=== PATIENT | male | born 1975 | race Two or more races ===

== ENCOUNTER 2016-11-17 23:39 | Emergency (ER) | payer MEDICAID ==
--- NOTE | 2016-11-17 23:43 | EDPHY ---
H & P HPI/ROS: HPI CHIEF COMPLAINT: Alcohol intoxication, possible seizure from [facility] HISTORY OF PRESENT ILLNESS: This patient is a 41-year-old male, drinks alcohol , tells me has a seizure disorder and he takes Ativan. He states he drinks alcohol daily. He is at the [facility] this evening. Where he states that he felt a seizure was going to come on. 911 was called he was transferred to the emergency room. There is no postictal state. There is no generalized tonic- clonic activity. Upon arrival to the emergency room the patient is intoxicated with alcohol. Smells of alcohol. Past Medical History: Daily alcohol use, seizures Past Surgical History: No recent surgical history Social History: Daily alcohol use Family History: Noncontributory ROS REVIEW OF SYSTEMS: A comprehensive 10 point review of systems is otherwise negative aside from elements mentioned in the history of present illness. Exam Constitutional Intoxicated, triage nursing summary reviewed, vital signs reviewed, Sleepy, smells of alcohol Eyes normal conjunctivae and sclera, horizontal beating nystagmus consistent acute alcohol intoxication, otherwise pupils equal and react to light HENT normal inspection, atraumatic, moist mucus membranes, no epistaxis, neck supple/ no meningismus, no raccoon eyes. Respiratory clear to auscultation bilaterally, normal breath sounds, no respiratory distress, no wheezing. Cardiovascular rate normal, regular rhythm, no murmur, no edema, distal pulses normal. Gastrointestinal soft, non-tender, no rebound, no guarding, normal bowel sounds, no distension, no pulsatile mass. Genitourinary no CVA tenderness. Musculoskeletal no midline vertebral tenderness, full range of motion, no calf swelling, no tenderness of extremities, no meningismus, good pulses, neurovascularly intact. Skin pink, warm, & dry, no rash, skin atraumatic. Neurologic sleepy, intoxicated with alcohol,, alert and oriented x 3, AAOx3, moves all 4 extremities equally, motor intact, sensory intact, CN II-XII intact , , normal vision, normal speech. Psychiatric normal mood/affect. Heme/Lymph/Immune no lymphadenopathy. Differential Diagnosis: Includes but is not limited to in a particular order acute alcohol intoxication, alcohol abuse, dehydration, electrolyte abnormality , nausea vomiting from acute alcohol intoxication [id number]: Patient has been sleeping here resting comfortably in no acute distress. No seizure activity. Patient like to go back to the [facility]. This will be appropriately set up. He ambulated well throughout the emergency room clinically sober. No acute distress. Source: Patient, EMS - Personal History Tetanus Vaccine Date: 2009 - Medical/Surgical History Hx Asthma: Yes Hx Chronic Respiratory Disease: No Hx Diabetes: No Hx Cardiac Disease: No Hx Renal Disease: No Hx Cirrhosis: No Hx Alcoholism: Yes Hx HIV/AIDS: No Hx Splenectomy or Spleen Trauma: No Other PMH: CHI, traumatic brain injury, alcoholism, siezures, asthma, hypertension, spinal fracture, bipolar, eating disorder - Social History Smoking Status: Never smoked Constitutional: Initial Vital Signs Temperature (C) 36.6 C 11/17/16 23:44 Heart Rate 74 11/17/16 23:44 Respiratory Rate 16 11/17/16 23:44 Blood Pressure 155/74 H 11/17/16 23:44 O2 Sat (%) 96 11/17/16 23:44 O2 Delivery Mode Room Air O2 (L/minute) 2 Allergies/Adverse Reactions: No Known Allergies Allergy (Verified 11/17/16 23:43) Home Medications: Medication Instructions Recorded QUEtiapine FUMARATE [Seroquel 200 500 mg PO HS 11/09/13 mg (*)] Zolpidem Tartrate [Ambien 10 mg] 10 mg PO HS 11/09/13 clonIDINE [Catapres (*)] 0.1 mg PO BID 11/09/13 lamoTRIgine [LamICTAL 100 MG (*)] 100 mg PO DAILY 11/09/13 chlordiazePOXIDE [Librium 25 mg 50 mg PO TID #27 cap 11/15/13 (*)] Medical Decision Making - Data Points Laboratory Results: 11/17/16 23:50 Ethyl Alcohol 244 mg/dL H mg/dL (0-10) Departure - Departure Disposition: Home, Routine, Self-Care Clinical Impression: Alcohol intoxication Qualifiers: Complication of substance-induced condition: uncomplicated Qualified Code(s): F10.920 - Alcohol use, unspecified with intoxication, uncomplicated Condition: Good Instructions: Alcohol Intoxication (ED) Referrals: Patient,NotPresent [Primary Care Provider] - As per Instructions
[2016-11-17 23:50] VITALS: RESP 16; TEMP 97.9
[2016-11-18 00:25] LABS: ETHANOL SERUM 244 mg/dL (0-10)
[2016-11-18] MEDS ORDERED: CHLORDIAZEPOXIDE 25MG PREPK#6 BTL TAKEHOME ONE (02:30)
[2016-11-18 02:34] VITALS: BP 114/81; PULSE 81; O2SAT 96
== END 2016-11-18 02:58 | disposition home or self-care (01) ==
LOC: EDUNIT#
DX: F10.920 Alcohol use, unspecified with intoxication, uncomplicated (principal); J45.909 Unspecified asthma, uncomplicated; I10 Essential (primary) hypertension
CPT/HCPCS: G0480

== ENCOUNTER 2016-11-22 09:45 | Emergency (ER) | payer MEDICAID ==
[2016-11-22] MEDS ORDERED: chlordiazePOXIDE 25 MG CAP PO ONE (09:51)
[2016-11-22 10:39] LABS: % IMMATURE GRANULYOCYTES 0.2 % (0.0-1.1); ABSOLUTE IMMATURE GRANULOCYTES 0.01 10^3/uL (0.00-0.10); ADD DIFF? NO; ADD MORPH? NO; ADD SCAN? NO; ATYPICAL LYMPHOCYTE FLAG 80 (0-99); FRAGMENT RBC FLAG 0 (0-99); HEMATOCRIT 40.9 % (40.0-51.0); HEMOGLOBIN 13.9 g/dL (13.7-17.5); LEFT SHIFT FLG 0 (0-99); LIPEMIA HEMOLYSIS FLAG 90 (0-99); MEAN CELL HEMOGLOBIN 32.5 pg (27.9-34.1); MEAN CELL VOLUME 95.6 fL (81.5-99.8); MEAN PLATELET VOLUME 9.5 fL (8.7-11.7); PLATELET CLUMPS FLAG 30 (0-99); PLATELET COUNT 216 10^3/uL (150-400); RED BLOOD CELL COUNT 4.28 10^6/uL (4.40-6.38); RED CELL DISTRIBUTION WIDTH 14.6 % (11.5-15.2)
[2016-11-22 10:54] LABS: ANION GAP 14 mEq/L (8-16); CALCIUM 8.4 mg/dL (8.5-10.4); CARBON DIOXIDE 22 mEq/l (22-31); CHLORIDE 105 mEq/L (97-110); CREATININE 0.5 mg/dL (0.7-1.3); ETHANOL SERUM 150 mg/dL (0-10); GLOMERULAR FILTRATION RATE > 60; GLUCOSE 73 mg/dL (70-100); POTASSIUM 3.4 mEq/L (3.5-5.2); SODIUM 141 mEq/L (134-144)
[2016-11-22] MEDS ORDERED: ONDANSETRON DISINTEGRATING 4 MG TAB ONE (12:56)
[2016-11-22] MEDS ORDERED: LORazepam 1 MG TAB PO ONE (13:01)
[2016-11-22] MEDS ORDERED: IPRATROPIUM/ALBUTEROL 3 ML DEYVIAL IH ONE (13:34)
--- NOTE | 2016-11-22 15:53 | EDPHY ---
H & P Stated Complaint: SI HPI/ROS: Chief complaint: Suicidal ideation History of present illness: This is a 41-year-old male brought to the emergency department by EMS for suicidal ideation. [facility] before he went inside he started to complain of suicidal ideation and he was brought here. On my evaluation patient states he does feel suicidal. He states he [place] off [place] yesterday in an attempt to kill himself. He is hurting all over from this fall. He denies homicidal ideation. He denies illness. He denies other associated signs or symptoms. Review of systems: A 10 point review of systems was obtained and other than described above was negative - Personal History Tetanus Vaccine Date: 2009 - Medical/Surgical History Hx Asthma: Yes Hx Chronic Respiratory Disease: No Hx Diabetes: No Hx Cardiac Disease: No Hx Renal Disease: No Hx Cirrhosis: No Hx Alcoholism: Yes Hx HIV/AIDS: No Hx Splenectomy or Spleen Trauma: No Other PMH: CHI, traumatic brain injury, alcoholism, siezures, asthma, hypertension, spinal fracture, bipolar, eating disorder - Social History Smoking Status: Never smoked - Physical Exam Exam: General Appearance: Alert, nontoxic Eyes: PERRLA Respiratory: Lungs clear to auscultation bilaterally Cardiac: Regular rate and rhythm. Gastrointestinal: Bowel sounds normal. Abdomen soft, nondistended, nontender. Neurological: Alert. Cranial nerves 2-12 grossly intact. Strength and sensation intact and symmetrical. Skin: Acute contusion to the left leg and right leg and edema to the right ankle and right hand Musculoskeletal: Head is nontender without crepitus or bony deformity. Diffuse tenderness to the cervical, thoracic and lumbar spine. No specific point tenderness, crepitus or bony deformity. Chest wall intact palpation without crepitus or subcutaneous air. Tenderness to the right ankle and hand the rest of the extremities are unremarkable. Constitutional: Initial Vital Signs Temperature (C) 37.0 C 11/22/16 10:29 Heart Rate 100 11/22/16 10:29 Respiratory Rate 18 11/22/16 10:29 Blood Pressure 130/78 H 11/22/16 10:29 O2 Sat (%) 94 11/22/16 10:29 O2 Delivery Mode Room Air Allergies/Adverse Reactions: No Known Allergies Allergy (Verified 11/17/16 23:43) Home Medications: Medication Instructions Recorded QUEtiapine FUMARATE [Seroquel 200 500 mg PO HS 11/09/13 mg (*)] Zolpidem Tartrate [Ambien 10 mg] 10 mg PO HS 11/09/13 clonIDINE [Catapres (*)] 0.1 mg PO BID 11/09/13 lamoTRIgine [LamICTAL 100 MG (*)] 100 mg PO DAILY 11/09/13 chlordiazePOXIDE [Librium 25 mg 50 mg PO TID #27 cap 11/15/13 (*)] Medical Decision Making - Diagnostics Imaging Results: Imaging Impressions Ankle X-Ray 11/22/16 09:52 Impression: There is no acute osseous abnormality. Cervical Spine CT 11/22/16 09:52 Impression: 1. No acute fracture or soft tissue swelling. 2. If the patient has persistent pain or neurologic deficits, consider cervical spine MRI. Findings discussed with Emergency Department physician, Michi Blanco PA-C on 11/22, 1143 hours. Hand X-Ray 11/22/16 09:52 Impression: Slight increase in degenerative change as above. Head CT 11/22/16 09:52 Impression: Negative. No acute intercranial hemorrhage or fracture. Findings discussed with Emergency Department physician, Michi Blanco PA-C on 11/22, 1143 hours. Lumbar Spine X-Ray 11/22/16 09:52 Impression: 1. No definite acute osseous findings. 2. Grade 1 spondylolytic spondylolisthesis of L5 on S1. 3. Mild dextroscoliosis of the thoracolumbar spine with trace retrolistheses of L1 on L2 and L2 on L3. Thoracic Spine X-Ray 11/22/16 09:52 Impression: Stable S-shaped scoliosis and mild degenerative change with no acute osseous findings. Imaging: Discussed imaging studies w/ call worker person Radiologist, I viewed and interpreted images myself ED Course/Re-evaluation: Patient is seen under the supervision of my secondary supervising physician Dr. Silvana Crisostomo. Patient presents to the emergency department for suicidal ideation. Initially he states he jumped off of the [address] [place] trying to kill himself. There is evidence of acute trauma on physical exam and because of this imaging studies are obtained without evidence of significant trauma. He is further evaluated and ultimately medically cleared for psychiatric evaluation. I have discussed the case with the psychiatric afterschool afterwards. This patient is known to their services. Apparently patient stated to the psychiatric evaluated that he was not suicidal, he jumped into a pond for fun, he did not jump off of anything else to try to kill himself and would like to be discharged. The psychiatric team feel he is safe for discharge. He does have an outpatient appointment arranged. He is discharged. Return precautions are given. Differential Diagnosis: Included but not limited to substance abuse, depression, bipolar, schizophrenia , trauma multiple etiologies - Data Points Laboratory Results: Laboratory Results 11/22/16 10:30 11/22/16 10:30 11/22/16 11/22/16 11/22/16 12:10 10:30 10:30 WBC 6.10 10^3/uL 10^3/uL (3.80-9.50) RBC 4.28 10^6/uL L 10^6/uL (4.40-6.38) Hgb 13.9 g/dL g/dL (13.7-17.5) Hct 40.9 % % (40.0-51.0) MCV 95.6 fL fL (81.5-99.8) MCH 32.5 pg pg (27.9-34.1) MCHC 34.0 g/dL g/dL (32.4-36.7) RDW 14.6 % % (11.5-15.2) Plt Count 216 10^3/uL 10^3/uL (150-400) MPV 9.5 fL fL (8.7-11.7) Neut % (Auto) 73.8 % % (39.3-74.2) Lymph % (Auto) 14.8 % L % (15.0-45.0) [place] % (Auto) 8.9 % % (4.5-13.0) Eos % (Auto) 1.8 % % (0.6-7.6) Baso % (Auto) 0.5 % % (0.3-1.7) Nucleat RBC Rel Count 0.0 % % (0.0-0.2) Absolute Neuts (auto) 4.51 10^3/uL 10^3/uL (1.70-6.50) Absolute Lymphs (auto) 0.90 10^3/uL L 10^3/uL (1.00-3.00) Absolute Monos (auto) 0.54 10^3/uL 10^3/uL (0.30-0.80) Absolute Eos (auto) 0.11 10^3/uL 10^3/uL (0.03-0.40) Absolute Basos (auto) 0.03 10^3/uL 10^3/uL (0.02-0.10) Absolute Nucleated RBC 0.00 10^3/uL 10^3/uL (0-0.01) Immature Gran % 0.2 % % (0.0-1.1) Immature Gran # 0.01 10^3/uL 10^3/uL (0.00-0.10) Sodium 141 mEq/L mEq/L (134-144) Potassium 3.4 mEq/L L mEq/L (3.5-5.2) Chloride 105 mEq/L mEq/L (97-110) Carbon Dioxide 22 mEq/l mEq/l (22-31) Anion Gap 14 mEq/L mEq/L (8-16) BUN 14 mg/dL mg/dL (7-23) Creatinine 0.5 mg/dL L mg/dL (0.7-1.3) Estimated GFR > 60 Glucose 73 mg/dL mg/dL (70-100) Calcium 8.4 mg/dL L mg/dL (8.5-10.4) Urine Opiates Screen NEGATIVE (NEGATIVE) Urine Barbiturates NEGATIVE (NEGATIVE) Ur Phencyclidine Scrn NEGATIVE (NEGATIVE) Ur Amphetamine Screen NEGATIVE (NEGATIVE) U Benzodiazepines Scrn NEGATIVE (NEGATIVE) Urine Cocaine Screen NEGATIVE (NEGATIVE) U Marijuana (THC) Screen NEGATIVE (NEGATIVE) Ethyl Alcohol 150 mg/dL H mg/dL (0-10) Medications Given: Discontinued Medications Albuterol/Ipratropium (Duoneb) 3 ml IH EDNOW ONE Stop: 11/22/16 13:35 Last Admin: 11/22/16 13:41 Dose: 3 ml Chlordiazepoxide HCl (Librium) 25 mg PO EDNOW ONE Stop: 11/22/16 09:52 Last Admin: 11/22/16 10:30 Dose: 25 mg Lorazepam (Ativan) 1 mg PO ONCE ONE Stop: 11/22/16 13:02 Last Admin: 11/22/16 13:06 Dose: 1 mg Departure - Departure Disposition: Home, Routine, Self-Care Clinical Impression: Suicidal ideation Condition: Good Instructions: Suicide Prevention for Adults (ED) Additional Instructions: Follow-up with your psychiatric team for continued care If symptoms worsen or new symptoms develop return to the emergency room for recheck Referrals: NONE *PRIMARY CARE P,. [Primary Care Provider] - As per Instructions [facility] [Outside] - As per Instructions
[2016-11-22 16:02] VITALS: BP 131/86; PULSE 94; RESP 18; TEMP 98.8; O2SAT 93
== END 2016-11-22 16:10 | disposition home or self-care (01) ==
LOC: EDUNIT#
DX: S80.12XA Contusion of left lower leg, initial encounter (principal); J45.909 Unspecified asthma, uncomplicated; S80.11XA Contusion of right lower leg, initial encounter; I10 Essential (primary) hypertension; S90.01XA Contusion of right ankle, initial encounter; S60.221A Contusion of right hand, initial encounter
CPT/HCPCS: 80305; G0480

== ENCOUNTER 2016-12-02 04:08 | Emergency (ER) | payer MEDICAID ==
--- NOTE | 2016-12-02 04:11 | EDPHY ---
H & P Source: Patient, EMS - Personal History Tetanus Vaccine Date: 2009 - Medical/Surgical History Hx Asthma: Yes Hx Chronic Respiratory Disease: No Hx Diabetes: No Hx Cardiac Disease: No Hx Renal Disease: No Hx Cirrhosis: No Hx Alcoholism: Yes Hx HIV/AIDS: No Hx Splenectomy or Spleen Trauma: No Other PMH: CHI, traumatic brain injury, alcoholism, siezures, asthma, hypertension, spinal fracture, bipolar, eating disorder - Social History Smoking Status: Never smoked HPI/ROS: HPI CHIEF COMPLAINT: Alcohol Intoxication HISTORY OF PRESENT ILLNESS: This patient 41-year-old male, presents emergency room by EMS [facility] however he is unable to ambulate stand up urinated on himself. [facility] was called for transport to the emergency room. Upon arrival here the patient is intoxicated smells of alcohol. Past Medical History: Seizure disorder, alcoholism, alcohol abuse, alcohol withdrawal, hypertension. Past Surgical History: No recent surgery Social History: Homelessness, alcoholism, alcohol abuse Family History: Noncontributory ROS REVIEW OF SYSTEMS: A comprehensive 10 point review of systems is otherwise negative aside from elements mentioned in the history of present illness. Exam Constitutional Intoxicated, triage nursing summary reviewed, vital signs reviewed, Sleepy, smells of alcohol Eyes normal conjunctivae and sclera, horizontal beating nystagmus consistent acute alcohol intoxication, otherwise pupils equal and react to light HENT normal inspection, atraumatic, moist mucus membranes, no epistaxis, neck supple/ no meningismus, no raccoon eyes. Respiratory clear to auscultation bilaterally, normal breath sounds, no respiratory distress, no wheezing. Cardiovascular rate normal, regular rhythm, no murmur, no edema, distal pulses normal. Gastrointestinal soft, non-tender, no rebound, no guarding, normal bowel sounds, no distension, no pulsatile mass. Genitourinary no CVA tenderness. Musculoskeletal no midline vertebral tenderness, full range of motion, no calf swelling, no tenderness of extremities, no meningismus, good pulses, neurovascularly intact. Skin pink, warm, & dry, no rash, skin atraumatic. Neurologic sleepy, intoxicated with alcohol,, alert and oriented x 3, AAOx3, moves all 4 extremities equally, motor intact, sensory intact, CN II-XII intact , , normal vision, normal speech. Psychiatric normal mood/affect. Heme/Lymph/Immune no lymphadenopathy. Differential Diagnosis: Includes but is not limited to in a particular order acute alcohol intoxication, alcohol abuse, dehydration, electrolyte abnormality , nausea vomiting from acute alcohol intoxication Medical Decision Making: Plan for this patient the check serum alcohol level. Monitor for sobriety. Re-evaluation: ED x-ray chest one view: Poor inspiratory effort. Otherwise no acute cardiopulmonary disease. (Mg Isaacs) Constitutional: Initial Vital Signs Temperature (C) 36.7 C 12/02/16 04:10 Heart Rate 88 12/02/16 04:10 Respiratory Rate 16 12/02/16 04:10 Blood Pressure 115/73 12/02/16 04:10 O2 Sat (%) 94 12/02/16 04:10 O2 Delivery Mode Room Air Allergies/Adverse Reactions: No Known Allergies Allergy (Verified 11/17/16 23:43) Home Medications: Medication Instructions Recorded QUEtiapine FUMARATE [Seroquel 200 500 mg PO HS 11/09/13 mg (*)] Zolpidem Tartrate [Ambien 10 mg] 10 mg PO HS 11/09/13 clonIDINE [Catapres (*)] 0.1 mg PO BID 11/09/13 lamoTRIgine [LamICTAL 100 MG (*)] 100 mg PO DAILY 11/09/13 chlordiazePOXIDE [Librium 25 mg 50 mg PO TID #27 cap 11/15/13 (*)] Medical Decision Making - Diagnostics Imaging Results: Imaging Impressions Ankle X-Ray 12/02/16 04:36 Impression: Negative right ankle series. Chest X-Ray 12/02/16 05:04 Impression: Negative portable chest. Other Provider: I assumed care of the patient at 7 o'clock in the morning pending sobriety and reassessment. 8:15 a.m.: Patient is now able to ambulate safely. He went to the bathroom. He has no acute complaints. The patient is currently on a [facility] hold by police. The [facility]. (Jaspreet Brunner) - Data Points Laboratory Results: Laboratory Results 12/02/16 05:15 12/02/16 04:20 12/02/16 12/02/16 12/02/16 05:15 04:20 04:20 WBC 8.77 10^3/uL 10^3/uL TNP (3.80-9.50) RBC 4.38 10^6/uL L 10^6/uL TNP (4.40-6.38) Hgb 14.4 g/dL g/dL TNP (13.7-17.5) Hct 42.7 % % TNP (40.0-51.0) MCV 97.5 fL fL TNP (81.5-99.8) MCH 32.9 pg pg TNP (27.9-34.1) MCHC 33.7 g/dL g/dL TNP (32.4-36.7) RDW 15.0 % % TNP (11.5-15.2) Plt Count 264 10^3/uL 10^3/uL TNP (150-400) MPV 9.2 fL fL TNP (8.7-11.7) Neut % (Auto) 71.4 % % TNP (39.3-74.2) Lymph % (Auto) 18.7 % % TNP (15.0-45.0) [place] % (Auto) 7.3 % % TNP (4.5-13.0) Eos % (Auto) 1.5 % % TNP (0.6-7.6) Baso % (Auto) 0.6 % % TNP (0.3-1.7) Nucleat RBC Rel Count 0.0 % % TNP (0.0-0.2) Absolute Neuts (auto) 6.27 10^3/uL 10^3/uL TNP (1.70-6.50) Absolute Lymphs (auto) 1.64 10^3/uL 10^3/uL TNP (1.00-3.00) Absolute Monos (auto) 0.64 10^3/uL 10^3/uL TNP (0.30-0.80) Absolute Eos (auto) 0.13 10^3/uL 10^3/uL TNP (0.03-0.40) Absolute Basos (auto) 0.05 10^3/uL 10^3/uL TNP (0.02-0.10) Absolute Nucleated RBC 0.00 10^3/uL 10^3/uL TNP (0-0.01) Immature Gran % 0.5 % % TNP (0.0-1.1) Immature Gran # 0.04 10^3/uL 10^3/uL TNP (0.00-0.10) Sodium 147 mEq/L H mEq/L (134-144) Potassium 4.6 mEq/L mEq/L (3.5-5.2) Chloride 104 mEq/L mEq/L (97-110) Carbon Dioxide 23 mEq/l mEq/l (22-31) Anion Gap 20 mEq/L H mEq/L (8-16) BUN 12 mg/dL mg/dL (7-23) Creatinine 0.8 mg/dL mg/dL (0.7-1.3) Estimated GFR > 60 Glucose 88 mg/dL mg/dL (70-100) Calcium 9.4 mg/dL mg/dL (8.5-10.4) Specimen Hemolysis 163 Ethyl Alcohol 12/02/16 04:20 WBC RBC Hgb Hct MCV MCH MCHC RDW Plt Count MPV Neut % (Auto) Lymph % (Auto) [place] % (Auto) Eos % (Auto) Baso % (Auto) Nucleat RBC Rel Count Absolute Neuts (auto) Absolute Lymphs (auto) Absolute Monos (auto) Absolute Eos (auto) Absolute Basos (auto) Absolute Nucleated RBC Immature Gran % Immature Gran # Sodium Potassium Chloride Carbon Dioxide Anion Gap BUN Creatinine Estimated GFR Glucose Calcium Specimen Hemolysis 164 Ethyl Alcohol 396 mg/dL H mg/dL (0-10) Medications Given: Discontinued Medications Chlordiazepoxide (Librium 25 Mg Prepack#6) 1 btl TAKEHOME EDNOW ONE Stop: 12/02/16 08:57 Last Admin: 12/02/16 08:59 Dose: 1 btl Sodium Chloride (Ns) 1,000 mls @ 0 mls/hr IV ONCE ONE PRN Reason: Wide Open Stop: 12/02/16 05:06 Last Admin: 12/02/16 05:45 Dose: 1,000 mls Departure - Departure Disposition: Home, Routine, Self-Care Clinical Impression: Alcohol intoxication Qualifiers: Complication of substance-induced condition: uncomplicated Qualified Code(s): F10.920 - Alcohol use, unspecified with intoxication, uncomplicated Condition: Good Instructions: Alcohol Intoxication (ED) Referrals: [facility] [Outside] - As per Instructions
[2016-12-02 05:01] LABS: SPECIMEN HEMOLYSIS 164
[2016-12-02] MEDS ORDERED: NS 1,000 ML IV ONE (05:05)
[2016-12-02 05:11] LABS: ETHANOL SERUM 396 mg/dL (0-10)
[2016-12-02 05:19] LABS: ANION GAP 20 mEq/L (8-16); CALCIUM 9.4 mg/dL (8.5-10.4); CARBON DIOXIDE 23 mEq/l (22-31); CHLORIDE 104 mEq/L (97-110); CREATININE 0.8 mg/dL (0.7-1.3); GLOMERULAR FILTRATION RATE > 60; GLUCOSE 88 mg/dL (70-100); POTASSIUM 4.6 mEq/L (3.5-5.2); SODIUM 147 mEq/L (134-144); SPECIMEN HEMOLYSIS 163
[2016-12-02 05:32] LABS: % IMMATURE GRANULYOCYTES 0.5 % (0.0-1.1); ABSOLUTE IMMATURE GRANULOCYTES 0.04 10^3/uL (0.00-0.10); ADD DIFF? NO; ADD MORPH? NO; ADD SCAN? NO; ATYPICAL LYMPHOCYTE FLAG 40 (0-99); FRAGMENT RBC FLAG 0 (0-99); HEMATOCRIT 42.7 % (40.0-51.0); HEMOGLOBIN 14.4 g/dL (13.7-17.5); LEFT SHIFT FLG 0 (0-99); LIPEMIA HEMOLYSIS FLAG 80 (0-99); MEAN CELL HEMOGLOBIN 32.9 pg (27.9-34.1); MEAN CELL HEMOGLOBIN CONCENTR. 33.7 g/dL (32.4-36.7); MEAN CELL VOLUME 97.5 fL (81.5-99.8); MEAN PLATELET VOLUME 9.2 fL (8.7-11.7); PLATELET CLUMPS FLAG 0 (0-99); PLATELET COUNT 264 10^3/uL (150-400); RED BLOOD CELL COUNT 4.38 10^6/uL (4.40-6.38)
[2016-12-02 08:16] VITALS: PULSE 90; TEMP 98.2; O2SAT 93
[2016-12-02 08:24] VITALS: BP 130/78; RESP 16
[2016-12-02] MEDS ORDERED: CHLORDIAZEPOXIDE 25MG PREPK#6 BTL TAKEHOME ONE (08:56)
== END 2016-12-02 09:42 | disposition home or self-care (01) ==
LOC: EDUNIT#
DX: F10.920 Alcohol use, unspecified with intoxication, uncomplicated (principal); J45.909 Unspecified asthma, uncomplicated; I10 Essential (primary) hypertension
CPT/HCPCS: G0480

== ENCOUNTER 2016-12-06 23:41 | Emergency (ER) | payer MEDICAID ==
[2016-12-06] MEDS ORDERED: NS 1,000 ML IV ONE (23:45)
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
[2016-12-06 23:55] VITALS: TEMP 98.4
[2016-12-07 00:16] LABS: % IMMATURE GRANULYOCYTES 0.2 % (0.0-1.1); ABSOLUTE IMMATURE GRANULOCYTES 0.02 10^3/uL (0.00-0.10); ADD DIFF? NO; ADD MORPH? NO; ADD SCAN? NO; ATYPICAL LYMPHOCYTE FLAG 20 (0-99); FRAGMENT RBC FLAG 0 (0-99); HEMATOCRIT 43.4 % (40.0-51.0); HEMOGLOBIN 14.6 g/dL (13.7-17.5); LEFT SHIFT FLG 0 (0-99); LIPEMIA HEMOLYSIS FLAG 80 (0-99); MEAN CELL HEMOGLOBIN CONCENTR. 33.6 g/dL (32.4-36.7); MEAN PLATELET VOLUME 9.1 fL (8.7-11.7); PLATELET CLUMPS FLAG 0 (0-99); PLATELET COUNT 275 10^3/uL (150-400); RED BLOOD CELL COUNT 4.43 10^6/uL (4.40-6.38); RED CELL DISTRIBUTION WIDTH 14.7 % (11.5-15.2)
[2016-12-07 00:40] LABS: ANION GAP 17 mEq/L (8-16); CALCIUM 9.3 mg/dL (8.5-10.4); CARBON DIOXIDE 21 mEq/l (22-31); CHLORIDE 107 mEq/L (97-110); CREATININE 0.7 mg/dL (0.7-1.3); GLOMERULAR FILTRATION RATE > 60; GLUCOSE 87 mg/dL (70-100); POTASSIUM 3.6 mEq/L (3.5-5.2); SODIUM 145 mEq/L (134-144)
[2016-12-07 01:03] LABS: ETHANOL SERUM 381 mg/dL (0-10)
[2016-12-07] MEDS ORDERED: ACETAMINOPHEN 325 MG TAB ONE (05:18)
[2016-12-07] MEDS ORDERED: PROMETHAZINE HCL 25 MG TAB ONE (05:25)
[2016-12-07] MEDS ORDERED: ACETAMINOPHEN 325 MG TAB PO ONE (05:35)
[2016-12-07] MEDS ORDERED: PROMETHAZINE HCL 25 MG TAB PO ONE (05:35)
[2016-12-07 07:52] VITALS: BP 92/65; PULSE 91; RESP 18; O2SAT 97
[2016-12-07] MEDS ORDERED: LORazepam 1 MG TAB PO ONE (08:08)
[2016-12-07] MEDS ORDERED: CHLORDIAZEPOXIDE 25MG PREPK#6 BTL TAKEHOME ONE (08:28)
== END 2016-12-07 09:27 | disposition home or self-care (01) ==
LOC: EDUNIT#
DX: T14.8 Other injury of unspecified body region (principal); J45.909 Unspecified asthma, uncomplicated; I10 Essential (primary) hypertension; E86.9 Volume depletion, unspecified; F10.920 Alcohol use, unspecified with intoxication, uncomplicated
CPT/HCPCS: G0480

== ENCOUNTER 2016-12-18 00:31 | Emergency (ER) | payer MEDICAID ==
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
[2016-12-18 00:51] VITALS: RESP 16; TEMP 98.1
[2016-12-18] MEDS ORDERED: OLANZapine 5 MG TAB PO ONE (01:05)
[2016-12-18] MEDS: HALOPERIDOL LACT 5 MG/ML INJ IVP ONE (01:30)
[2016-12-18 02:37] LABS: ETHANOL SERUM 357 mg/dL (0-10); SPECIMEN HEMOLYSIS 204
[2016-12-18 08:06] VITALS: BP 112/89; PULSE 67; O2SAT 95
== END 2016-12-18 08:06 | disposition home or self-care (01) ==
DX: F10.920 Alcohol use, unspecified with intoxication, uncomplicated (principal); J45.909 Unspecified asthma, uncomplicated; I10 Essential (primary) hypertension
CPT/HCPCS: 96374; G0480

== ENCOUNTER 2017-01-03 09:54 | Emergency (ER) | payer MEDICAID ==
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
[2017-01-03 10:03] VITALS: PULSE 85; RESP 18
[2017-01-03 14:22] VITALS: BP 133/74; TEMP 98.2; O2SAT 94
== END 2017-01-03 14:21 | disposition home or self-care (01) ==
LOC: EDUNIT#
DX: Z72.89 Other problems related to lifestyle (principal); J45.909 Unspecified asthma, uncomplicated; I10 Essential (primary) hypertension

== ENCOUNTER 2017-10-12 02:23 | Emergency (ER) | payer MEDICAID, OTHER ==
--- NOTE | 2017-10-12 02:47 | EDPHY ---
H & P Stated Complaint: EtOH Time Seen by Provider: 10/12/17 02:46 HPI/ROS: HPI CHIEF COMPLAINT: Alcohol Intoxication HISTORY OF PRESENT ILLNESS: 42-year-old male, very familiar to myself as well as the emergency room presents emergency room by EMS, history of alcoholism daily alcohol use, traumatic brain injury and bipolar disorder, presents emergency room by EMS highly intoxicated with alcohol. No reported trauma. Upon arrival to the emergency room he is screaming and yelling. Past Medical History: Alcoholism, daily alcohol use, traumatic brain injury, bipolar disorder Past Surgical History: No recent surgical history Social History: Denies drugs or tobacco. Daily alcohol use. Family History: Noncontributory. ROS REVIEW OF SYSTEMS: A comprehensive 10 point review of systems is otherwise negative aside from elements mentioned in the history of present illness. Exam Constitutional Intoxicated, triage nursing summary reviewed, vital signs reviewed, Sleepy, smells of alcohol Eyes normal conjunctivae and sclera, horizontal beating nystagmus consistent acute alcohol intoxication, otherwise pupils equal and react to light HENT normal inspection, atraumatic, moist mucus membranes, no epistaxis, neck supple/ no meningismus, no raccoon eyes. Respiratory clear to auscultation bilaterally, normal breath sounds, no respiratory distress, no wheezing. Cardiovascular rate normal, regular rhythm, no murmur, no edema, distal pulses normal. Gastrointestinal soft, non-tender, no rebound, no guarding, normal bowel sounds, no distension, no pulsatile mass. Genitourinary no CVA tenderness. Musculoskeletal no midline vertebral tenderness, full range of motion, no calf swelling, no tenderness of extremities, no meningismus, good pulses, neurovascularly intact. Skin pink, warm, & dry, no rash, skin atraumatic. Neurologic sleepy, intoxicated with alcohol,, alert and oriented x 3, AAOx3, moves all 4 extremities equally, motor intact, sensory intact, CN II-XII intact , , normal vision, normal speech. Psychiatric normal mood/affect. Heme/Lymph/Immune no lymphadenopathy. Differential Diagnosis: Includes but is not limited to in a particular order acute alcohol intoxication, alcohol abuse, dehydration, electrolyte abnormality , nausea vomiting from acute alcohol intoxication Medical Decision Making: Plan for this patient IM Haldol due to patient's screaming and trying to get out of bed. For staff safety in his safety he received 10 mg IM Haldol. Re-evaluation: 621: Patient still very intoxicated. 699: Signed over at 7:00 a.m. Shift change. Patient still intoxicated needs to sober and then appropriately be disposition. Signed over to Dr. Bush. 699: Patient toxic it with alcohol however slowly sobering. Father is on his way to pick him up. Source: Patient, EMS - Personal History Current Tetanus Diphtheria and Acellular Pertussis (TDAP): Yes Tetanus Vaccine Date: 2009 - Medical/Surgical History Hx Asthma: Yes Hx Chronic Respiratory Disease: No Hx Diabetes: No Hx Cardiac Disease: No Hx Renal Disease: No Hx Cirrhosis: No Hx Alcoholism: Yes Hx HIV/AIDS: No Hx Splenectomy or Spleen Trauma: No Other PMH: CHI, traumatic brain injury, alcoholism, siezures, asthma, hypertension, spinal fracture, bipolar, eating disorder - Social History Smoking Status: Never smoked Constitutional: Initial Vital Signs Temperature (C) 36.6 C 10/12/17 02:29 Heart Rate 73 10/12/17 02:29 Respiratory Rate 16 10/12/17 02:29 Blood Pressure 119/79 10/12/17 02:29 O2 Sat (%) 96 10/12/17 02:29 O2 Delivery Mode Room Air O2 (L/minute) 2 Allergies/Adverse Reactions: No Known Allergies Allergy (Verified 10/12/17 02:35) Home Medications: Medication Instructions Recorded QUEtiapine FUMARATE [Seroquel 200 500 mg PO HS 11/09/13 mg (*)] Zolpidem Tartrate [Ambien 10 mg] 10 mg PO HS 11/09/13 clonIDINE [Catapres (*)] 0.1 mg PO BID 11/09/13 lamoTRIgine [LamICTAL 100 MG (*)] 100 mg PO DAILY 11/09/13 chlordiazePOXIDE [Librium 25 mg 50 mg PO TID #27 cap 11/15/13 (*)] Medical Decision Making - Data Points Medications Given: Discontinued Medications Haloperidol Lactate (Haldol Injection) 10 mg IM EDNOW ONE Stop: 10/12/17 02:55 Last Admin: 10/12/17 02:54 Dose: 10 mg Departure - Departure Disposition: Home, Routine, Self-Care Clinical Impression: Alcohol intoxication Qualifiers: Complication of substance-induced condition: uncomplicated Qualified Code(s): F10.920 - Alcohol use, unspecified with intoxication, uncomplicated Condition: Good Instructions: Alcohol Intoxication (ED), Abuse of Alcohol (ED) Referrals: NONE *PRIMARY CARE P,. [Primary Care Provider] - As per Instructions
[2017-10-12] MEDS ORDERED: HALOPERIDOL LACT 5 MG/ML INJ ONE (02:51)
[2017-10-12] MEDS ORDERED: HALOPERIDOL LACT 5 MG/ML INJ IM ONE ×2 (02:51→02:54)
[2017-10-12 08:52] VITALS: BP 120/89
== END 2017-10-12 08:52 | disposition home or self-care (01) ==
LOC: EDUNIT#
DX: F10.920 Alcohol use, unspecified with intoxication, uncomplicated (principal); J45.909 Unspecified asthma, uncomplicated
CPT/HCPCS: J1630